=== PATIENT | male | born 1970 | race Caucasian/White ===

== ENCOUNTER → 2016-07-23 | Outpatient (CLI) | payer BC ==
[~2016-07-23] VITALS: Ht 180.3 cm; Wt 68.0 kg
[2016-07-23 15:42] VITALS: BP 181/121; PULSE 68; Ht 180.3 cm; Wt 68.0 kg
== END | disposition home or self-care (01) ==
LOC: C.NEUR 15:14
PROVIDERS: ATTEND Internal Medicine Pulmonary Disease
DX: G47.33 Obstructive sleep apnea (adult) (pediatric) (principal)

== ENCOUNTER → 2017-08-07 | Outpatient (CLI) | payer OTHER ==
--- NOTE | 2017-08-07 13:52 | DIAGNOSTIC IMAGING REPORT ---
R KNEE 1 OR 2 VIEWS ROUTINE CLINICAL HISTORY: 47 years-old Male presenting with RT KNEE PAIN. TECHNIQUE: Frontal and lateral views of the right knee were obtained. COMPARISON: None. FINDINGS: No acute fracture or malalignment. No advanced degenerative change. Minimal osteophytosis at the patellofemoral compartment. No radiographic soft tissue abnormality. IMPRESSION: 1. No acute osseous injury. 2. Minimal degenerative changes in the patellofemoral compartment. Electronically signed by: Max Rodgers M.D. 08/07/2017 1:51 PM Dictated Date/Time: 08/07/2017 1:50 PM
== END | disposition home or self-care (01) ==
LOC: C.RAD 13:24
PROVIDERS: ATTEND Family Medicine
DX: M25.561 Pain in right knee (principal)

== ENCOUNTER → 2017-08-09 | Outpatient (CLI) | payer OTHER | END | disposition home or self-care (01) | LOC: C.LAB 15:27 | PROVIDERS: ATTEND Family Medicine | DX: M25.461 Effusion, right knee (principal) ==